=== PATIENT | male | born 1990 | race African-American/Black ===

== ENCOUNTER 2022-05-09 11:05 | Emergency (ER) | payer OTHER, MEDICAID, SELFPAY ==
[2022-05-09 11:06] VITALS: BP 146/79; PULSE 85; RESP 14; TEMP 36.2; O2SAT 95; BMI 32.5
--- NOTE | 2022-05-09 11:15 | EDS_ITS ---
HPI History of Present Illness HPI Narrative: Stack of pallets fell hitting the patient and injuring his left ankle. 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 A stack of pallets fell hitting him and injuring his left ankle. He is concerned he has a fracture left ankle. No LOC. No other complaints. He does state that he broke his left second toe 2 weeks ago. That did not occur today. Prior similar symptoms: No Recent Illness/Hospitalization: No PFSH PFSH Home Medications hydrocodone-acetaminophen 5-325mg 5mg-325mg 1 tab PO Q4H PRN pain 4 days #20 tabs 05/09/22 [Rx Last Taken Unknown] Allergy/AdvReac Type Severity Reaction Status Date / Time Penicillins [PCN] Allergy Hives Verified 05/09/22 11:06 Social History Smoking Status: Light Smoker (<10/day) ROS ROS ED ROS Narrative No recent illness. Review of Systems ROS Unobtainable: Denies due to encephalopathy Constitutional Constitutional ED: Denies chills or fever(s) Eyes Eyes: Denies blurry vision ENT ENT ED: Denies ear pain Cardiovascular Cardiovascular: Denies chest pain Respiratory/Chest Respiratory/Chest: Denies cough or dyspnea Gastrointestinal Gastrointestinal: Denies abdominal pain Genitourinary Genitourinary ED: Denies dysuria or hematuria Musculoskeletal Musculoskeletal: Denies arthralgias Integumentary Denies abscess Neurologic Neurologic: Denies headache(s) Psychiatric Psychiatric: Denies anxiety Endocrine Endocrinology: Denies polydipsia Hematologic/Lymphatic Hematologic/Lymphatic: Denies easy bleeding Allergic/Immunologic Allergic/Immunologic ED: Denies mouth swelling EXAM Physical Exam Narrative Exam Narrative: 30-year-old male vital signs stable afebrile. H EENT exam pupils are reactive light. No signs of trauma to his face or scalp. Neck and back nontender. Trachea midline. Lungs clear to auscultation bilaterally. Heart regular rhythm rate about 80 no murmur. Chest wall nontender. Abdomen soft nontender. Pelvic girdle intact. Moving all 4 extremities. Both hips and knees are nontender right ankle and foot unremarkable. Left ankle is swollen and tender there is an abrasion. There is swelling. DP pulses intact. He is able to wiggle his toes. Normal touch sensation. Achilles tendon is intact. Both upper extremities are unremarkable. Neurologically is awake and alert with no focal motor deficits. GCS of 15. Right shoulder does have an abrasion. He has range of motion however. No deformity. He also has some abrasions and contusions on his back. But no spinal tenderness. Const Vital Signs: 05/09/22 11:06 Temperature 97.1 F L Temperature Source Temporal Pulse Rate 85 Respiratory Rate 14 Blood Pressure 146/79 H Blood Pressure Mean 101 Pulse Ox 95 Oxygen Delivery Method Room Air Positive well nourished and well developed; Negative for obese, cachectic, contractures or unkempt General Appearance ED: well developed and NAD; Negative for unkempt, cachectic or contractures Nutritional Appearance: Negative for cachectic or obese HEENT Reports moist mucous membranes normocephalic and atraumatic; Negative for trauma Eyes PERRL General Eye ED: Negative for other Neck full ROM and supple Thyroid: Negative for tender Lymph Lymphatic: Negative for other Resp normal respiratory effort, no retractions and clear to auscultation bilaterally Effort and Inspection: Negative for pain with movement Auscultation: Negative for rales, rhonchi or wheezes Cardio regular rate, regular rhythm, S1 normal heart sound, S2 normal heart sound and no murmurs GI non-tender, non-distended and no masses Inspection: Negative for abdominal distention Auscultation: normoactive bowel sounds Palpation: soft; Negative for tender, guarding or rebound tenderness present Back/Spine no CVA tenderness General Back: Negative for CVA tenderness Cervical Spine: Negative for cervical spine tenderness Thoracic Spine / Upper Back: Negative for thoracic spinal tenderness Lumbar Spine / Lower Back: Negative for lumbar spinal tenderness or straight leg raise positive - left Extremity normal to inspection and full ROM Extremity Narrative: Right lower extremity unremarkable. Left ankle swollen and tender. Abrasion. Decreased range of motion. Achilles intact. Palpable DP pulse. Foot nontender. Able to wiggle his toes. Normal sensation. General Extremety ED: Yes edema; Negative for cyanosis General Extremity: edema; Negative for cyanosis Neuro oriented x3, moves all extremities and no sensory deficits noted Sensorium / Orientation: alert, oriented to person, oriented to place and oriented to time; Negative for orientation impaired, confused, lethargic or stuporous Motor Exam: strength 5/5 throughout Psych mental status grossly normal Appearance: Negative for unkempt Skin No no wounds Lesions: No no lesions Rashes: No no rashes Trauma: abrasion MDM MDM MDM Narrative Medical decision making narrative: 32-year-old male industrial accident injury to his left ankle. X-ray being obtained. He did not want a thing for pain. Left ankle shows a medial malleolus and distal fibula fracture. Patient was placed in a posterior splint with a sugar-tong for support. He tolerated procedure well. Short leg fabricated Ortho-Glass splint, myself. He was instructed nonweightbearing. Radiography Diagnostic Testing: Clinical Impression(s) from Imaging Studies Ankle X-Ray 05/09/22 11:17 IMPRESSION: Fracture of the distal tibia and fibula with disruption of the ankle mortise and bimalleolar soft tissue swelling, would recommend additional x-rays of the proximal tibia and fibula to rule out maissonneuve fracture. Electronically Signed: Sammy Cardona MD at 11:36 EDT , Shoulder X-Ray 05/09/22 11:55 IMPRESSION: Unremarkable x-ray examination of the right shoulder. Electronically Signed: Steve Herring MD at 12:28 EDT , Left ankle x-ray throws a distal tibia fracture and a medial malleolus fracture with disruption of the ankle mortise. 3 views interpreted by myself and the radiologist. Left shoulder x-ray 3 view shows no acute abnormality. Interpreted by myself and radiologist. Procedures Lower Extremity Splints Lower Extremity Splint: Orthoglass Splint Fabrication: Fabricated Location: Left Discharge Plan Triage Chief Complaint: Lower Extremity Injury ED Provider: Hugo Maldonado Dx/Rx/DC Orders Clinical Impression: Ankle fracture, left, Contusion of right shoulder region, Abrasion of back, Encounter related to worker's compensation claim Instructions: ED Ankle Fracture Prescriptions: New hydrocodone-acetaminophen 5-325 mg tablet 1 tab PO Q4H PRN (Reason: pain) 4 Days Qty: 20 0RF Primary Care Provider: ALLY DAY Referrals: ALLY DAY [Other] Khanh Lund DO [Med Staff - Active Staff] - As soon as possible Activity Restrictions/Additional Instructions: Ice and elevate your ankle is much as possible decrease pain and swelling. At least 5 times a day for half an hour each time. For the next 3 days. You may also use the narcotic pain medication [place] if you use that it has Tylenol in it do not use Tylenol also. Call and follow-up with the orthopedic physician Dr. Cassidy [facility] as soon as possible. Call their office today get set up with appointment this week. You are off work until seen in follow-up by the orthopedic doctor. Keep your splint dry and clean. No weightbearing. Use the crutches. The splint is not strong enough to hold your weight nor would it protect the ankle fracture enough so no walking on it. Disposition Disposition: Home, Self Care
--- NOTE | 2022-05-09 11:17 | RAD_ITS ---
INDICATION: trauma EXAMINATION/TECHNIQUE: X-RAY - LEFT XR Ankle Min 3 Views 3 VIEWS COMPARISON: None. FINDINGS: Oblique fracture of the distal diaphysis of the left, is visualized with approximately 50% of the lateral displacement of the distal fracture fragment and 25% placed. Displacement. Bone fragments visualized along the posterior superior border of the fracture. No significant angulation of the fracture fragments is seen. Transverse fracture across the medial malleolus is visualized with 75% -100% medial displacement of the fracture fragment. Disruption of the ankle mortise is is visualized, no evidence of fracture of the talar dome. No evidence of midfoot fracture or dislocation. Bimalleolar soft tissue swelling is seen. RAD/Ankle min 3 Views IMPRESSION: Fracture of the distal tibia and fibula with disruption of the ankle mortise and bimalleolar soft tissue swelling, would recommend additional x-rays of the proximal tibia and fibula to rule out maissonneuve fracture. Electronically Signed: Sammy Cardona MD at 11:36 EDT ,
[2022-05-09] MEDS: Acetaminophen 500 MG Tablet 1000 MG PO (11:37)
--- NOTE | 2022-05-09 11:55 | RAD_ITS ---
STUDY: X-RAY - RIGHT SHOULDER REASON FOR EXAM: Right shoulder pain, right shoulder injury. TECHNIQUE: 2 view(s) of the shoulder. COMPARISON: None. FINDINGS: Normal glenohumeral articulation. Normal acromioclavicular joint. Normal acromion. Normal humeral head and visualized proximal humerus. The soft tissue structures are unremarkable. Normal visualized pulmonary apex. RAD/Shoulder min 2 Views IMPRESSION: Unremarkable x-ray examination of the right shoulder. Electronically Signed: Steve Herring MD at 12:28 EDT ,
--- NOTE | 2022-05-09 12:40 | EDS_ITS ---
HPI History of Present Illness HPI Narrative: Left ankle injury. Chief Complaint: Lower Extremity Injury Informant: patient Occured/Mechanism Mechanism/Context: Yes injury Onset/Context/Timing Onset: Today Context: Sudden Onset Timing: Continuous Current Severity: Moderate Maximum Severity: Moderate Associated Symptoms Associated Symptoms: Negative for Parasthesia, Weakness or Loss of Funtion Narrative Narrative: 13-year-old male who was injured at work this is a workers comp claim. 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 No LOC. No other complaints. Prior similar symptoms: No Recent Illness/Hospitalization: No PFSH PFSH Medical History Alcohol use Arthritis Asthma Bruising Dietary restriction Gastric reflux History of edema History of gastroschisis Hypertension Injury of back Injury of head and neck Leg cramps Smoker Home Medications hydrocodone-acetaminophen 5-325mg 5mg-325mg 1 tab PO Q4H PRN pain 4 days #20 tabs 05/09/22 [Rx Last Taken Unknown] oxycodone 5 mg tablet 5 mg PO Q6H PRN pain 7 days #42 tabs 05/16/22 [Rx Last Taken Unknown] Allergy/AdvReac Type Severity Reaction Status Date / Time Penicillins [PCN] Allergy Hives Verified 05/16/22 13:09 Social History Smoking Status: Light Smoker (<10/day) ROS ROS ED ROS Narrative Denies recent illness. Review of Systems ROS Unobtainable: Denies due to encephalopathy Constitutional Constitutional ED: Denies chills Eyes Eyes: Denies blurry vision ENT ENT ED: Denies ear pain Cardiovascular Cardiovascular: Denies chest pain Respiratory/Chest Respiratory/Chest: Denies cough Gastrointestinal Gastrointestinal: Denies abdominal pain Genitourinary Genitourinary ED: Denies dysuria Musculoskeletal Musculoskeletal: Denies arthralgias Neurologic Neurologic: Denies headache(s) Psychiatric Psychiatric: Denies anxiety Endocrine Endocrinology: Denies polydipsia Hematologic/Lymphatic Hematologic/Lymphatic: Denies easy bleeding Allergic/Immunologic Allergic/Immunologic ED: Denies mouth swelling EXAM Physical Exam Narrative Exam Narrative: 32-year-old male vital signs are stable afebrile. HEENT exam unremarkable atraumatic pupils round reactive light. C-spine nontender. Trachea midline. Lungs are clear equal symmetrical. Heart regular rhythm no murmur rate about 85. Chest wall nontender. Abdomen soft nontender. Pelvic girdle intact. Back nontender he does have an abrasion and contusion to his right shoulder. He is able to do range of motion there is no gross bony deformity. Is extremities he is moving all 4. His left ankle is tender and swollen. Both medially and laterally. He does have a palpable DP pulse. He is able to wiggle his toes. He has normal touch sensation. The right lower extremity is unremarkable the left knee and hip are unremarkable. Right shoulder has an abrasion and mildly tender but no deformity. Elbows wrist and hands are normal bilaterally. Neurologically is awake and alert with no focal motor deficits. Const Positive well nourished and well developed; Negative for obese, cachectic, contr actures or unkempt General Appearance ED: well developed and NAD; Negative for unkempt, cachectic or contractures Nutritional Appearance: Negative for cachectic or obese HEENT Reports moist mucous membranes normocephalic; Negative for atraumatic, trauma or tenderness Eyes PERRL General Eye ED: Negative for other Neck full ROM and supple Thyroid: Negative for tender Lymph Lymphatic: Negative for other Chest Wall inspection of chest normal and palpation of chest normal Chest: Negative for other Resp normal respiratory effort, no retractions and clear to auscultation bilaterally Effort and Inspection: Negative for pain with movement Auscultation: Negative for rales Percussion: Negative for other Cardio regular rate, regular rhythm, S1 normal heart sound, S2 normal heart sound and no murmurs Rate: Negative for bradycardia or tachycardic Rhythm: Negative for abnormal rhythm GI non-tender, non-distended and no masses Inspection: Negative for abdominal distention Auscultation: normoactive bowel sounds Palpation: soft; Negative for tender, guarding or rebound tenderness present Back/Spine no CVA tenderness General Back: Negative for CVA tenderness Cervical Spine: Negative for cervical spine tenderness Thoracic Spine / Upper Back: Negative for thoracic spinal tenderness Lumbar Spine / Lower Back: Negative for lumbar spinal tenderness Extremity normal to inspection and full ROM Extremity Narrative: Except tenderness and swelling left ankle both medially and laterally. Palpable DP pulse. Able to wiggle his toes. Normal touch sensation. Right shoulder shows no abrasion. No gross bony deformity. He does have range of motion. General Extremety ED: Negative for cyanosis, edema or weight-bearing difficulty General Extremity: Negative for cyanosis, edema or weight-bearing difficulty Neuro oriented x3, CN's II-XII intact bilaterally, moves all extremities and no sensory deficits noted Sensorium / Orientation: alert, oriented to person, oriented to place and oriented to time; Negative for confused, lethargic or stuporous Motor Exam: strength 5/5 throughout Psych mental status grossly normal Appearance: Negative for unkempt Speech: No other Mood & Affect: Negative for anxious Skin No no wounds Skin Narrative: Right shoulder abrasion. Left ankle abrasion. Lesions: no lesions Rashes: no rashes Trauma: abrasion MDM MDM MDM Narrative Medical decision making narrative: 32-year-old male involved in an industrial accident at work suspect left ankle fracture. He also has injury to his right shoulder which will be x-rayed also and abrasion and contusion to his back. Repeat exam patient is doing well. He was placed in a posterior splint with sugar-tong lateral support for his left bimalleolar ankle fracture. I spoke to orthopedics and they will see him as an outpatient. He was written for pain medication for home. Ice and elevate. Radiography Diagnostic Testing: Clinical Impression(s) from Imaging Studies Ankle X-Ray 05/09/22 11:17 IMPRESSION: Fracture of the distal tibia and fibula with disruption of the ankle mortise and bimalleolar soft tissue swelling, would recommend additional x-rays of the proximal tibia and fibula to rule out maissonneuve fracture. Electronically Signed: Sammy Cardona MD at 11:36 EDT , Shoulder X-Ray 05/09/22 11:55 IMPRESSION: Unremarkable x-ray examination of the right shoulder. Electronically Signed: Steve Herring MD at 12:28 EDT , Left ankle x-ray shows a distal fibula fracture with disruption of the ankle mortise and a medial malleolus fracture. Consistent with a bimalleolar frac ture. This is a 3 views interpreted both by myself and radiologist. Shoulder x-ray shows no acute abnormality. 3 views interpreted by myself and radiologist. Procedures Lower Extremity Splints Lower Extremity Splint: Orthoglass Splint Fabrication: Fabricated Location: Left Discharge Plan Triage Chief Complaint: Lower Extremity Injury ED Provider: Hugo Maldonado Dx/Rx/DC Orders Clinical Impression: Ankle fracture, left, Contusion of right shoulder region, Abrasion of back, Encounter related to worker's compensation claim Instructions: ED Ankle Fracture Prescriptions: New hydrocodone-acetaminophen 5-325 mg tablet 1 tab PO Q4H PRN (Reason: pain) 4 Days Qty: 20 0RF No Action oxycodone 5 mg tablet 5 mg PO Q6H PRN (Reason: pain) 7 Days Qty: 42 0RF Primary Care Provider: ALLY DAY Referrals: ALLY DAY [Other] Khanh Lund DO [Med Staff - Active Staff] - As soon as possible Activity Restrictions/Additional Instructions: Ice and elevate your ankle is much as possible decrease pain and swelling. At least 5 times a day for half an hour each time. For the next 3 days. You may also use the narcotic pain medication [place] if you use that it has Tylenol in it do not use Tylenol also. Call and follow-up with the orthopedic physician Dr. Cassidy [facility] as soon as possible. Call their office today get set up with appointment this week. You are off work until seen in follow-up by the orthopedic doctor. Keep your splint dry and clean. No weightbearing. Use the crutches. The splint is not strong enough to hold your weight nor would it protect the ankle fracture enough so no walking on it. Disposition Disposition: Home, Self Care Discharge Date/Time: 05/09/22 14:32
[2022-05-09 13:09] VITALS: RESP 16
--- NOTE | 2022-05-09 13:12 | EX.ED.DYSGE1 ---
HPI History of Present Illness Chief Complaint: Lower Extremity Injury PFSH PFSH Home Medications hydrocodone-acetaminophen 5-325mg 5mg-325mg 1 tab PO Q4H PRN pain 4 days #20 tabs 05/09/22 [Rx Last Taken Unknown] Allergy/AdvReac Type Severity Reaction Status Date / Time Penicillins [PCN] Allergy Hives Verified 05/09/22 11:06 Social History Smoking Status: Light Smoker (<10/day) EXAM Physical Exam Const Vital Signs: 05/09/22 11:06 05/09/22 13:09 Temperature 97.1 F L Temperature Source Temporal Pulse Rate 85 Respiratory Rate 14 16 Blood Pressure 146/79 H Blood Pressure Mean 101 Pulse Ox 95 Oxygen Delivery Method Room Air MDM MDM Radiography Diagnostic Testing: Clinical Impression(s) from Imaging Studies Ankle X-Ray 05/09/22 11:17 IMPRESSION: Fracture of the distal tibia and fibula with disruption of the ankle mortise and bimalleolar soft tissue swelling, would recommend additional x-rays of the proximal tibia and fibula to rule out maissonneuve fracture. Electronically Signed: Sammy Cardona MD at 11:36 EDT , Shoulder X-Ray 05/09/22 11:55 IMPRESSION: Unremarkable x-ray examination of the right shoulder. Electronically Signed: Steve Herring MD at 12:28 EDT , Discharge Plan Triage Chief Complaint: Lower Extremity Injury ED Provider: Hugo Maldonado Dx/Rx/DC Orders Clinical Impression: Ankle fracture, left, Contusion of right shoulder region, Abrasion of back, Encounter related to worker's compensation claim Instructions: ED Ankle Fracture Prescriptions: New hydrocodone-acetaminophen 5-325 mg tablet 1 tab PO Q4H PRN (Reason: pain) 4 Days Qty: 20 0RF Primary Care Provider: ALLY DAY Referrals: ALLY DAY [Other] Khanh Lund, DO [Med Staff - Active Staff] - As soon as possible Activity Restrictions/Additional Instructions: Ice and elevate your ankle is much as possible decrease pain and swelling. At least 5 times a day for half an hour each time. For the next 3 days. You may also use the narcotic pain medication [place] if you use that it has Tylenol in it do not use Tylenol also. Call and follow-up with the orthopedic physician Dr. Cassidy [facility] as soon as possible. Call their office today get set up with appointment this week. You are off work until seen in follow-up by the orthopedic doctor. Keep your splint dry and clean. No weightbearing. Use the crutches. The splint is not strong enough to hold your weight nor would it protect the ankle fracture enough so no walking on it. Disposition Disposition: Home, Self Care Sepsis Attestation Sepsis Attestation Supportive Findings:
== END 2022-05-09 14:32 | disposition home or self-care (01) ==
PROVIDERS: Emergency Provider Emergency Medicine; Visit Provider Emergency Medicine
DX: S82.52XA Displaced fracture of medial malleolus of left tibia, initial encounter for closed fracture (principal); S82.832A Other fracture of upper and lower end of left fibula, initial encounter for closed fracture; S40.011A Contusion of right shoulder, initial encounter; S30.810A Abrasion of lower back and pelvis, initial encounter; W22.8XXA Striking against or struck by other objects, initial encounter; J45.909 Unspecified asthma, uncomplicated; F17.200 Nicotine dependence, unspecified, uncomplicated
CPT/HCPCS: 29515; 73030; 73610; 99283

== ENCOUNTER 2022-05-16 12:26 | Day surgery (SDC) | payer OTHER, MEDICAID, SELFPAY ==
[2022-05-16] VITALS (12 sets, daily range): BP systolic 114–142; BP diastolic 57–81; PULSE 73–124; RESP 16–24; TEMP 36.6–37; O2SAT 92–99; BMI 32.4
[2022-05-16] MEDS: Lactated Ringers 1,000 ML 15 ML IV ×3 (13:00→16:52)
[2022-05-16] MEDS: Cefazolin 2 GM in 0.9% Normal Saline 100 ML IV (13:47)
--- NOTE | 2022-05-16 14:05 | RAD_ITS ---
STUDY: X-RAY - LEFT ANKLE REASON FOR EXAM: Male, 32 years old. FX TECHNIQUE: 2 view(s) of the ankle. COMPARISON: 05/09/2022 FINDINGS: Fluoroscopy of the left ankle is utilized for operating room during open reduction internal fixation of fractures of the medial malleolus and distal fibula and 8 images are significant for interpretation.. RAD/Ankle 2 Views IMPRESSION: Fluoroscopy during open reduction internal fixation. Electronically Signed: David Bryan MD at 17:07 EDT ,
[2022-05-16] MEDS: HYDROcodone Bitartrate/Apap 5/325 Tablet PO (18:26)
--- NOTE | 2022-05-16 19:16 | OP.PCM_ITS ---
Report of Operation Date of Procedure: 05/16/22 Description of Surgical Findings:: Preoperative diagnosis: Left ankle bimalleolar fracture dislocation Postoperative diagnosis: Left ankle bimalleolar fracture dislocation with syndesmotic instability Procedure: 1. Open reduction internal fixation left ankle bimalleolar fracture dislocation 2. Open reduction internal fixation left ankle syndesmosis Surgeon: Khanh Lund DO Anesthesia: General endotracheal Anesthesiologist: Dr. Zurita Complications: None Drains: None Estimated blood loss: 30 cc Urinary output: None recorded IV fluids: 1300 cc crystalloid Specimens: None Surgical implants: Arthrex 9 hole titanium lateral locking distal fibula plate, 4.0 mm partially-threaded cancellous cannulated screw, 3.5 mm solid cortex screw, Arthrex tight rope Surgical indications: This is a 32-year-old male who sustained a work-related injury 1 week ago when a stack of pallets fell onto him. He sustained a bimalleolar ankle fracture dislocation with a high fibular fracture at that time with significant comminution. He was splinted in the emergency department. There was residual subluxation noted on the x-rays. He had significant fracture blistering which stabilized over the last several days requiring wound check 2 days ago. Skin a ppeared amenable to fixation. I recommended open reduction internal fixation of the bimalleolar ankle fracture dislocation. I also suspect that the syndesmosis was involved given the fracture pattern. I explained this will likely require fixation as well. We reviewed the risks, benefits, alternatives. Risks include but are not limited to bleeding, infection, loss of life or limb, risk of anes thesia, risk of nerve block, persistent pain, nonunion, malunion, posttraumatic arthritis, instability, need for additional surgery, failure of orthopedic hardware, persistent limp or need for assistive device. Patient expressed understanding of these risks and wished to proceed. Description of procedure: Patient was seen in preoperative holding area. They were identified by name, medical record number, date of . The operative extremity was marked with a surgical marker. We confirmed informed consent with the patient and all questions were answered to her satisfaction. In the preoperative holding area, a popliteal block and abductor canal were administered by the anesthesia staff. At time of the procedure, patient was brought to the operative suite and positioned supine on a standard operating table. All bony prominences were well-padded. General anesthesia was administered. After adequate anesthesia, a well-padded pneumatic tourniquet was applied to the left upper thigh. A large bump was placed in the patient's left hip. The left lower extremity was elevated on bath blankets for fluoroscopic imaging and access to the limb during surgery. We secured this with tape as well as the nonoperative extremity. We then performed a timeout with all parties in attendance and agree with the side, site, operation to be performed. No concerns were voiced and elected to p roceed. 2 g Ancef was administered prior to incision by the anesthesia staff. We then prepped and draped the operative extremity using a ChloraPrep. While stabilizing the ankle, the operative extremity was exsanguinated with an Esmarch bandage. Tourniquet was inflated to 275 mmHg were made up for approximately 80 minutes. Incision was planned over the lateral malleolus and distal fibular shaft centered over the level of the fracture. Skin was sharply incised with a 15 blade scalpel. Superficial bleeders were cauterized with Bovie cautery. We then bluntly dissected to the level of the fascia. Fascia was opened with Bovie cautery. We examined closely for the superficial peroneal nerve which was not encountered throughout surgery. We bluntly dissected down to the level of the periosteum. Hohmann retractors were placed after fracture was encountered as well as the fibula. There was severe comminution noted at the level of the fracture. The largest fracture fragments were able to be stabilized with a lobster claw clamp to determine and reproduce fibular length. I held this in place with K wires. Clamp was removed. I then selected a lateral distal fibular locking plate achieving 3 bicortical cortex screw fixation proximal to the fracture site and appropriate fixation distally with locking screws. This was placed in a bridge plate fashion. I then turned my attention medially. I made a oblique incision overlying the medial malleolus. Skin was sharply incised with 15 blade scalpel. I bluntly dissected in the subcutaneous tissue down to the level of the periosteum. Periosteum was significantly stripped and flipped into the fracture site. Interposed periosteum was debrided sharply. There was a small piece of cartilage identified within the joint medially which was excised. Donor site was unable to be visualized. The posterior tibialis tendon was examined and appeared pristine. I then made a small fire pilot hole with a 2.0 mm drill bit proximal to the fracture site. A pointed reduction tenaculum was used to anatomically reduce the medial malleolus. I placed 2 parallel K wires through the tip of the medial malleolus. There placement was confirmed to be appropriate on fluoroscopy. I then drilled unit cortically with most anterior screw and bicortically with the posterior screw. I placed a bicortical cortex screw posteriorly with excellent fixation. Unicortical partially-threaded cancellous screw was placed anteriorly with again, excellent fixation. I then turned my attention back laterally. I performed a external rotation stress test and cotton test which demonstrated unstable syndesmosis. I then proceeded to place a tight rope across the 4 cortices of the syndesmosis. Drill was removed and tight rope was placed. Button was flipped on the far cortex. I then sequentially tightened the tight rope which was placed through the lateral locking plate. Excellent compression across the syndesmosis was achieved. Sutures were then cut flush with the button. Final fluoroscopic images were obtained. External rotation stress test and cotton test appeared to be within normal limits following tight rope fixation. Tourniquet was deflated. Hemostasis was excellent. I then closed the incisions in standard fashion with buried 3-0 Vicryl suture. 3-0 nylon suture was used to reapproximate the skin in horizontal mattress fashion. Bulky sterile compression dressing was applied. A well-padded 3 sided short leg AO fiberglass splint was applied in maximal dorsiflexion. Patient was then safely extubated the operative suite. He was transferred to PACU in stable condition after being transferred to his [place]. Patient tolerated procedure well without apparent complication. Intraoperative medications: 2 g Ancef IV prior to incision Need for skilled assistant professor of drama: Roseanne Cornejo PA-C was critical to the outcome of the case. During the course of the procedure the physician assistant professor of drama played a vital role. Her intimate knowledge of my steps in the procedure aided in safe and expedient completion of the procedure. The PA played a vital role in positioning particularly in obtaining the appropriate positioning. The PA was also vital in the retraction of soft tissues during the exposure and protecting vital structures. The PA was also vital and protecting soft tissues during times of fracture reduction and hardware placement. She also played a vital role in closure and splint application with my direct supervision. Post Operative Plan: Weightbearing: Nonweightbearing operative extremity Antibiotics: 2 g Ancef IV prior to incision x 1 dose preoperatively DVT Prophylaxis: Aspirin 81 mg twice daily to start tomorrow [place]: None indicated Dressing: Maintain splint, keep it clean dry and intact until follow-up X-Rays: 2 weeks postop in the office Pain Medication: Oxycodone Rx upon discharge Follow-up: 2 weeks post-operatively with me in the office
--- NOTE | 2022-05-16 19:28 | DCINST_ITS ---
Discharge Instructions Follow Up Care Test Results: Test results from this visit will be discussed in further detail at your follow- up appointment, if applicable. Discharge Plan Admission Primary Reason for Your Visit: Left Ankle surgery Attending Provider: Khanh Lund Primary Care Provider: ALLY DAY Instructions Additional Instructions / Restrictions: Follow preprinted instructions from your surgeons office. Discharge Orders/Prescriptions Prescriptions: New oxycodone 5 mg tablet 5 mg PO Q6H PRN (Reason: pain) 7 Days Qty: 42 0RF No Action hydrocodone-acetaminophen 5-325 mg tablet 1 tab PO Q4H PRN (Reason: pain) 4 Days Qty: 20 0RF Referrals / Follow Up: ALLY DAY [Other] Khanh Lund DO [Med Staff - Active Staff] - Within 2 Weeks Disposition Disposition (needs filled in before D/C Order can be placed): Home, Self Care
== END 2022-05-16 18:57 | disposition home or self-care (01) ==
LOC: SDC 12:30 → AC 12:30
PROVIDERS: Referring Provider Student in an Organized Health Care Education/Training Program; Visit Provider Student in an Organized Health Care Education/Training Program
PROC: (CPT 27814; principal; 2022-05-16 13:35)
DX: S82.842A Displaced bimalleolar fracture of left lower leg, initial encounter for closed fracture (principal); S93.492A Sprain of other ligament of left ankle, initial encounter; W22.8XXA Striking against or struck by other objects, initial encounter; J45.909 Unspecified asthma, uncomplicated
CPT/HCPCS: 27814; 27792; 01480; 73600; 76000; C1713; J7120; J2405